=== PATIENT | male | born 1955 | race Caucasian/White ===

== ENCOUNTER 2022-05-29 09:20 | Observation (INO) ==
[2022-05-29] MEDS ORDERED: dilTIAZem HCl 5 MG/ML 5 ML VIAL IV STA (09:39)
[2022-05-29] MEDS ORDERED: SODIUM CHLORIDE 0.9% 1000ML 1,000 ML IV ONE (09:39)
--- NOTE | 2022-05-29 09:44 | Emergency Department Note ---
Impression & Plan Atrial fibrillation with rapid ventricular response Admit ED Provider Note HPI: The patient is a 67-year-old gentleman who presents to the emergency department with concern for atrial fibrillation with RVR. Patient was seen at his outpatient provider's office today for routine screening examination preoperatively for carpal tunnel procedure that he is to undergo in the near future. Patient was noted to have tachycardia, EKG was performed at the facility and shows atrial fibrillation with RVR with heart rate in the 150s. Patient states that he does not have any chest pain, states he did not have any sensation of palpitations until he was told about this at the office and then he did begin to experience a sensation of palpitations. Patient otherwise is in no acute distress on arrival, he is hemodynamically stable from the standpoint of his blood pressure, his pulse was noted to be 94 in triage however patient is tachycardic in the 140s on the monitor on my assessment. EKG was brought with him for review and does show atrial fibrillation with a heart rate of 155 that was obtained an hour and 40 minutes prior to the patient's assessment here in the ED. Patient does arrive by private vehicle. 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 ROS: -Cardio: Palpitations -Skin: Abrasions to left antecubital fossa area *10 point review systems was conducted and is otherwise negative unless stated above *Outpatient medications and allergy history reviewed PE: General: Alert, NAD HEENT: Normocephalic, atraumatic Eyes: Extraocular eye movement is intact, no scleral erythema Pulmonary: Clear to auscultation bilaterally, no wheezing Cardio: Tachycardic rate with an irregular rhythm GI: Abdomen is soft, nontender : No suprapubic tenderness MSK: No evidence of trauma or malformation of the extremities, no edema Skin: No evidence of rash, superficial subacute appearing abrasions to the left upper extremity without surrounding erythema, no swelling or fluctuance Neuro: Alert, no focal deficits Psychiatric: Cooperative court recording monitor: - An order was placed for continuous cardiac monitoring - Patient was noted to be in atrial fibrillation with a rate of 145 EKG: Rate: 146 Rhythm: Atrial fibrillation Intervals: Within normal limits ST changes: No ST elevation Time: 0942 Medical Decision Making: Patient presented to the emergency department with a chief complaint of atrial fibrillation with RVR. This was noted at a preoperative screening appointment at his primary care doctor's office today. On arrival the patient is tachycardic but blood pressure is stable, he denies any chest pain or shortness of breath. IV was established, lab work obtained, patient was placed on awake overnight monitor, EKG does show evidence of atrial fibrillation with RVR, patient was given a diltiazem bolus with minimal response, he was subsequently started on a diltiazem drip and was given a dose of IV metoprolol. On my reassessment the patient's heart rate is in the low 100s. He otherwise appears well, he remains in atrial fibrillation. 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 There is no impressive erythema surrounding the area, no fluctuance to palpation, patient is however noted to have a significant leukocytosis with a left shift therefore was covered with vancomycin and ceftriaxone following consultation with in-house pharmacy here in the ED. Chest x-ray does not show any acute abnormality, troponin is negative, I did discuss admission with the patient he is in agreement, [facility] was consulted for admission and the leonard helton was admitted in stable condition for further care. * CRITICAL CARE TIME: 44 min -Stabilization of tachyarrhythmia requiring IV medications for rate control, time spent at the bedside, interpretation of diagnostic studies and EKG, arrangement of admission Diagnosis: 1. Atrial fibrillation with RVR, new onset 2. Abrasions to the left forearm from rabbit scratch 3. Leukocytosis Disposition: Admission Sabino Snowden DO Emergency Medicine Past Med/Surg History Medical History (Updated 05/29/22 @ 11:16 by Sabino Snowden DO) GERD (gastroesophageal reflux disease) HX Hypertension Surgical History History of arthroscopy RIGHT KNEE History of colonoscopy with polypectomy History of hernia repair abdominal hernia repair History of laryngoscopy WITH BOTOX SHOTS TO VOCAL CORDS History of right cataract surgery History of tooth extraction WITH IMPLANTS Hx of tonsillectomy Family History Other No family history of adverse response to anesthesia Denies family history of Colon cancer Ovarian cancer Prostate cancer Myocardial infarction Breast cancer Social History (Updated 05/22/19 @ 08:19 by Eleanor Mo) Smoking Status: Never smoker Second Hand Exposure: No; Hx Alcohol Use: No Hx Substance Use: No Preferred Language: Malaysian Communication Ability: Effective 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 Beliefs That Will Affect Care: None Current Living Situation: Significant Other Current Living Situation Comment: lives with girlfriend Feels Safe at Home: Yes Assistive Devices: Glasses Allergies Allergies Allergy/AdvReac Type Severity Reaction Status Date / Time No Known Allergies Allergy Verified 04/03/20 06:24 Home Meds Home Medications Medication Instructions Recorded Confirmed lisinopril 5 mg tablet 5 mg PO QAM 01/08/20 04/02/20 nortriptyline 10 mg capsule 10 mg PO PM 01/08/20 04/02/20 Results & Data (ED) Vital Signs Vital Signs - 24 hr 05/29/22 09:30 05/29/22 09:45 05/29/22 09:45 Temperature 37.0 C Temperature Source Temporal Artery Scan Pulse Rate 94 H 139 H Pulse Rate [Apical] 142 H Pulse Rate from SpO2 Sensor Pulse Rhythm Irregular Pulse Rhythm [Apical] Irregular Respiratory Rate 20 18 18 Respiratory Effort / Characteristics Non-Labored Non-Labored Respiratory Depth Normal Normal Blood Pressure 136/97 Blood Pressure [Left Arm] 124/81 Blood Pressure Mean 110 Blood Pressure Mean [Left Arm] 95 Pulse Oximetry 98 98 98 Oxygen Delivery Method Room Air Room Air Room Air Sepsis Recent Fever Within 48 Hours No Sepsis New/Unexplained Change in Mental Status N/A Sepsis Action Taken by Nursing No Action Required 05/29/22 09:59 05/29/22 09:59 05/29/22 10:00 Temperature Temperature Source Pulse Rate 125 H Pulse Rate [Apical] Pulse Rate from SpO2 Sensor 140 H Pulse Rhythm Pulse Rhythm [Apical] Respiratory Rate 20 Respiratory Effort / Characteristics Respiratory Depth Blood Pressure 148/112 H Blood Pressure [Left Arm] Blood Pressure Mean 124 Blood Pressure Mean [Left Arm] Pulse Oximetry 98 Oxygen Delivery Method Room Air Sepsis Recent Fever Within 48 Hours Sepsis New/Unexplained Change in Mental Status Sepsis Action Taken by Nursing 05/29/22 10:00 05/29/22 10:10 05/29/22 10:10 Temperature Temperature Source Pulse Rate 132 H 128 H Pulse Rate [Apical] Pulse Rate from SpO2 Sensor 124 H 118 H Pulse Rhythm Pulse Rhythm [Apical] Respiratory Rate 16 26 H Respiratory Effort / Characteristics Respiratory Depth Blood Pressure 158/104 H Blood Pressure [Left Arm] Blood Pressure Mean 122 Blood Pressure Mean [Left Arm] Pulse Oximetry 99 97 Oxygen Delivery Method Sepsis Recent Fever Within 48 Hours Sepsis New/Unexplained Change in Mental Status Sepsis Action Taken by Nursing 05/29/22 10:20 05/29/22 10:20 05/29/22 10:47 Temperature Temperature Source Pulse Rate 130 H 140 H Pulse Rate [Apical] Pulse Rate from SpO2 Sensor 126 H Pulse Rhythm Pulse Rhythm [Apical] Respiratory Rate Respiratory Effort / Characteristics Respiratory Depth Blood Pressure 144/117 H 146/113 H Blood Pressure [Left Arm] Blood Pressure Mean 126 Blood Pressure Mean [Left Arm] Pulse Oximetry 99 Oxygen Delivery Method Sepsis Recent Fever Within 48 Hours Sepsis New/Unexplained Change in Mental Status Sepsis Action Taken by Nursing Laboratory Data Result diagrams: 05/29/22 09:48 05/29/22 09:48 Lab Results 05/29/22 05/29/22 05/29/22 Range/Units 09:48 09:48 09:48 WBC 16.37 H (4.8-10.8) K/ul RBC 5.19 (4.63-6.08) M/uL Hgb 14.8 (14.0-18.0) g/dl Hct 43.2 (40.1-51.0) % MCV 83.2 (80.0-100.0) fL MCH 28.5 (25.0-34.0) pg MCHC 34.3 (32.0-36.0) g/dL RDW Std Deviation 36.5 (36.4-46.3) fL RDW Coeff of Julio 12.0 (11.5-14.5) % Plt Count 371 (130-400) K/uL MPV 8.7 L (9.4-12.4) fL Immature Gran % (Auto) 0.4 % Neut % (Auto) 67.3 % Lymph % (Auto) 23.8 % Concho % (Auto) 7.8 % Eos % (Auto) 0.4 % Baso % (Auto) 0.3 % Neut # (Auto) 11.02 H (1.4-6.5) K/uL Lymph # (Auto) 3.89 H (1.2-3.4) K/uL Concho # (Auto) 1.28 H (0.24-0.82) K/uL Eos # (Auto) 0.07 (0-0.50) K/uL Baso # (Auto) 0.05 (0-0.2) K/uL Immature Gran # (Auto) 0.06 H (0.00-0.02) K/uL PT 10.2 (9.0-12.0) Seconds INR 1.0 (0.9-1.1) APTT 27.3 (21.0-31.0) Seconds PTT Ratio 1.0 Sodium 137 (136-145) mmol/L Potassium 3.6 (3.5-5.1) mmol/L Chloride 100 (98-107) mmol/L Carbon Dioxide 29 (21-32) mmol/L Anion Gap 8 (3-11) BUN 19 (6-23) mg/dl Creatinine 0.77 (0.6-1.4) mg/dl Est Cr Clr Drug Dosing 84.5 ml/min Est GFR ( Amer) 107.3 ml/min Est GFR (Non-Af Amer) 92.6 ml/min BUN/Creatinine Ratio 24.7 H (10-20) Glucose 156 H (70-99(Fasting)) mg/dl Calcium 9.7 (8.5-10.1) mg/dl Magnesium 2.0 (1.7-2.4) mg/dl Total Bilirubin 0.4 (0.2-1.0) mg/dl AST 16 (13-39) U/L ALT 21 (7-52) U/L Alkaline Phosphatase 57 (34-104) U/L Troponin I High Sens 16.2 (0-20) pg/ml Total Protein 6.8 (6.0-8.3) gm/dl Albumin 3.8 (3.4-5.0) gm/dl Globulin 3.0 (2.5-4.0) gm/dl Albumin/Globulin Ratio 1.3 (0.9-2) Lipase 34 (11-82) U/L TSH (0.300-4.500) uIu/ml 05/29/22 Range/Units 09:48 WBC (4.8-10.8) K/ul RBC (4.63-6.08) M/uL Hgb (14.0-18.0) g/dl Hct (40.1-51.0) % MCV (80.0-100.0) fL MCH (25.0-34.0) pg MCHC (32.0-36.0) g/dL RDW Std Deviation (36.4-46.3) fL RDW Coeff of Julio (11.5-14.5) % Plt Count (130-400) K/uL MPV (9.4-12.4) fL Immature Gran % (Auto) % Neut % (Auto) % Lymph % (Auto) % Concho % (Auto) % Eos % (Auto) % Baso % (Auto) % Neut # (Auto) (1.4-6.5) K/uL Lymph # (Auto) (1.2-3.4) K/uL Concho # (Auto) (0.24-0.82) K/uL Eos # (Auto) (0-0.50) K/uL Baso # (Auto) (0-0.2) K/uL Immature Gran # (Auto) (0.00-0.02) K/uL PT (9.0-12.0) Seconds INR (0.9-1.1) APTT (21.0-31.0) Seconds PTT Ratio Sodium (136-145) mmol/L Potassium (3.5-5.1) mmol/L Chloride (98-107) mmol/L Carbon Dioxide (21-32) mmol/L Anion Gap (3-11) BUN (6-23) mg/dl Creatinine (0.6-1.4) mg/dl Est Cr Clr Drug Dosing ml/min Est GFR ( Amer) ml/min Est GFR (Non-Af Amer) ml/min BUN/Creatinine Ratio (10-20) Glucose (70-99(Fasting)) mg/dl Calcium (8.5-10.1) mg/dl Magnesium (1.7-2.4) mg/dl Total Bilirubin (0.2-1.0) mg/dl AST (13-39) U/L ALT (7-52) U/L Alkaline Phosphatase (34-104) U/L Troponin I High Sens (0-20) pg/ml Total Protein (6.0-8.3) gm/dl Albumin (3.4-5.0) gm/dl Globulin (2.5-4.0) gm/dl Albumin/Globulin Ratio (0.9-2) Lipase (11-82) U/L TSH 1.064 (0.300-4.500) uIu/ml Administered Medications Diltiazem HCl 125 mg/ Dextrose 125 mls @ 5 mls/hr IV .Q24H [facility]; Protocol Stop: 06/28/22 09:59 Last Admin: 05/29/22 10:16 Dose: 5 mg/hr, 5 mls/hr Documented By: FELA Co-signed By: LEONOR Discontinued Medications Diltiazem HCl (Diltiazem Hcl 5 Mg/Ml 5 Ml Vial) 10 mg IV NOW STA Stop: 05/29/22 09:40 Last Admin: 05/29/22 09:50 Dose: 10 mg Documented By: ANGY Co-signed By: FELA Sodium Chloride (Nss 1000ml) 1,000 mls @ 999 mls/hr IV .Q1H1M ONE Stop: 05/29/22 10:39 Last Admin: 05/29/22 09:52 Dose: 999 mls/hr Documented By: ANGY Metoprolol Tartrate (Metoprolol Tartrate 1 Mg/Ml Vial) 5 mg IV NOW STA Stop: 05/29/22 10:30 Last Admin: 05/29/22 10:47 Dose: 5 mg Documented By: FELA Imaging Data Radiologist's Impression: Chest X-Ray 05/29/22 09:33 XR chest 1V portable HISTORY: 67 years-old Male Chest Pain COMPARISON: None TECHNIQUE: AP view of the chest FINDINGS: Cardiomediastinal and hilar silhouettes are within normal limits. Nipple shadow projects over the left lung base. No pneumothorax, pleural effusion, airspace consolidation or overt pulmonary edema. Degenerative changes of the shoulders and spine. IMPRESSION: No acute process. ACT 112: Negative or not required by law. The above report was generated using voice recognition software. It may contain grammatical, syntax or spelling errors. Electronically signed by: Edu Cage M.D. 05/29/2022 10:41 AM Discharge Plan Visit Data Chief Complaint: Cardiac Assessment Stated Complaint: ABNORMAL LABS, REF BY DR PEREZ Provider: Sabino Snowden Discharge Problem: Atrial fibrillation with rapid ventricular response Patient Disposition: Admitted As Inpatient Forms Stand Alone Forms: [facility] Prescriptions Prescriptions: No Action nortriptyline 10 mg capsule 10 mg PO PM lisinopril 5 mg tablet 5 mg PO QAM Referrals Referrals: PCP,NO [Physician] -
[2022-05-29] MEDS ORDERED: STAT IV Infusion **Titration per Protocol STA (09:59)
[2022-05-29 10:00] LABS: Basophils # (auto) 0.05 K/uL (0-0.2); Basophils % (auto) 0.3 %; Eosinophils # (auto) 0.07 K/uL (0-0.50); Eosinophils % (auto) 0.4 %; Hematocrit (blood only) 43.2 % (40.1-51.0); Hemoglobin 14.8 g/dl (14.0-18.0); Immature Granulocytes # (auto) 0.06 K/uL (0.00-0.02); Immature Granulocytes % (auto) 0.4 %; Lymphocytes # (auto) 3.89 K/uL (1.2-3.4); Lymphocytes % (auto) 23.8 %; Mean Corpuscular Hemoglobin 28.5 pg (25.0-34.0); Mean Corpuscular Hgb Conc 34.3 g/dL (32.0-36.0); Mean Corpuscular Volume 83.2 fL (80.0-100.0); Mean Platelet Volume 8.7 fL (9.4-12.4); Monocytes # (auto) 1.28 K/uL (0.24-0.82); Monocytes % (auto) 7.8 %; Neutrophils # (auto) 11.02 K/uL (1.4-6.5); Neutrophils % (auto) 67.3 %; Platelet Count 371 K/uL (130-400); RDW Standard Deviation 36.5 fL (36.4-46.3); Red Blood Count 5.19 M/uL (4.63-6.08); White Blood Count 16.37 K/ul (4.8-10.8)
[2022-05-29 10:16] LABS: Partial Thromboplastin Time 27.3 Seconds (21.0-31.0); Prothrombin Time 10.2 Seconds (9.0-12.0)
[2022-05-29] MEDS: dilTIAZem HCL 125 MG in DEXTROSE 5% 100 ML IV SCH (10:16)
[2022-05-29] MEDS ORDERED: METOPROLOL TARTRATE 1 MG/ML VIAL IV STA (10:29)
[2022-05-29 10:31] LABS: Albumin Globulin Ratio 1.3 (0.9-2); Albumin Level 3.8 gm/dl (3.4-5.0); BUN Creatinine Ratio 24.7 (10-20); Bilirubin,Total 0.4 mg/dl (0.2-1.0); Calcium 9.7 mg/dl (8.5-10.1); Creatinine Clr Calc Pharmacy 84.5 ml/min; Est GFR (African American) 107.3 ml/min; Est GFR (Non-African American) 92.6 ml/min; Potassium 3.6 mmol/L (3.5-5.1); Total Protein 6.8 gm/dl (6.0-8.3)
--- NOTE | 2022-05-29 10:43 | XRay Report ---
XR chest 1V portable HISTORY: 67 years-old Male Chest Pain COMPARISON: None TECHNIQUE: AP view of the chest FINDINGS: Cardiomediastinal and hilar silhouettes are within normal limits. Nipple shadow projects over the lef t lung base. No pneumothorax, pleural effusion, airspace consolidation or overt pulmonary edema. Dege nerative changes of the shoulders and spine. IMPRESSION: No acute process. ACT 112: Negative or not required by law. The above report was generated using voice recognition software. It may contain grammatical, syntax o r spelling errors. Electronically signed by: Edu Cage M.D. 05/29/2022 10:41 AM
[2022-05-29] MEDS ORDERED: VANCOMYCIN HCL 1,250 MG in SODIUM CHLORIDE 0.9% 500 ML IV ONE (11:09)
[2022-05-29] MEDS ORDERED: cefTRIAXone SODIUM 1,000 MG/50 ML BAG IV STA (11:09)
[2022-05-29] MEDS ORDERED: VANCOMYCIN CONSULT ACTIVE PRN (11:09)
[2022-05-29 11:19] LABS: Troponin I High Sensitivity 15.6 pg/ml (0-20)
--- NOTE | 2022-05-29 11:28 | History & Physical Report ---
Date of Service May 29, 2022 Assessment & Plan (1) Atrial fibrillation with rapid ventricular response: Plan: This is a 67-year-old male with PMH of prediabetes, HTN, carpal tunnel who presents from PCPs office with tachycardia and was found to have new onset A. fib with RVR. Irina WNL, has been on steroids for 2 weeks for carpal tunnel pain and hand swelling Possible underlying infection of LUE 2/2 abrasions from rabbit CXR with no acute process Diltiazem bolus and drip initiated in ED - HR ~ 115 during examination Continue drip, started on IV heparin for anticoagulation [id number] 2D echo obtained, routine cardiology consult (2) Hypertension: Plan: Continue lisinopril (3) Leukocytosis: (4) Carpal tunnel syndrome on both sides: Plan: Continue medrol dosepak to complete- given missed dose in ED DVT Ppx: IV heparin Code status: FULL PCP: [place] Dispo: Admitted to PCU Patient seen in collaboration with Dr. Gee. Please see addendum. History of Present Illness Chief Complaint: tachycardia, sent from PCP Primary Care Provider: Ricardo Sarah MD This is a 67-year-old male with PMH of prediabetes, HTN, carpal tunnel who presents from PCPs office with tachycardia. Patient was being seen in follow-up for bilateral hand pain due to carpal tunnel with surgery scheduled for July. Is in the middle of a Medrol dose pack taper. At PCP appointment, patient was noted to be tachycardic and EKG revealed A. fib with RVR and was direcred to ED for further evaluation. HR in 140s upon arrival. Patient denies any history of atrial fibrillation. 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 Infrequent alcohol use. Denies personal history of any known heart disease. Does have scratches on left arm from [place] rabbits. Has approximately 20 pet rabbits that and he was kicked and scratched on L arm last week. States appearance of scratches are improving. No fever or chills or open wounds. Denies any lightheadedness, chest pain, shortness of breath or near syncope. States he only noted palpitations after he was told in the office that his heart rate was high. Home medications include lisinopril for high blood pressure and nortriptyline for remote history of cataplexy. On day 4 of week long Medrol dose pack. Allergies Allergy/AdvReac Type Severity Reaction Status Date / Time No Known Allergies Allergy Verified 04/03/20 06:24 Home Medications Medication Instructions Recorded Confirmed Type nortriptyline 10 mg capsule 10 mg PO PM 01/08/20 05/29/22 History lisinopril 10 mg tablet 10 mg PO DAILY 05/29/22 05/29/22 History Past Med/Surg History Medical History Carpal tunnel syndrome on both sides GERD (gastroesophageal reflux disease) HX Hypertension Surgical History History of arthroscopy RIGHT KNEE History of colonoscopy with polypectomy History of hernia repair abdominal hernia repair History of laryngoscopy WITH BOTOX SHOTS TO VOCAL CORDS History of right cataract surgery History of tooth extraction WITH IMPLANTS Hx of tonsillectomy Family History Other Heart disease No family history of adverse response to anesthesia Denies family history of Colon cancer Ovarian cancer Prostate cancer Myocardial infarction Breast cancer Social History Smoking Status: Former smoker Smoking End Date: 1984; Second Hand Exposure: No; Hx Alcohol Use: Yes Alcohol type: beer Alcohol Intake Frequency: 2-4 x/Month Hx Substance Use: No Preferred Language: Citizen Of [place] Communication Ability: Effective 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 Physical Exam Physical Exam: Please see Dr. Gee's addendum for physical exam. Results & Data Results & Data ([facility]) Vital Signs (Past 12 Hours) Vital Signs Temp Pulse Pulse Resp BP BP Pulse Ox 05/29/22 10:47 140 H 146/113 H 05/29/22 10:20 130 H 99 05/29/22 10:20 144/117 H 05/29/22 10:10 128 H 26 H 97 05/29/22 10:10 158/104 H 05/29/22 10:00 132 H 16 99 05/29/22 10:00 148/112 H 05/29/22 09:59 125 H 20 98 05/29/22 09:59 05/29/22 09:45 139 H 18 98 05/29/22 09:45 142 H 18 124/81 98 05/29/22 09:30 37.0 C 94 H 20 136/97 98 O2 Del Method 05/29/22 10:47 05/29/22 10:20 05/29/22 10:20 05/29/22 10:10 05/29/22 10:10 05/29/22 10:00 05/29/22 10:00 05/29/22 09:59 05/29/22 09:59 Room Air 05/29/22 09:45 Room Air 05/29/22 09:45 Room Air 05/29/22 09:30 Room Air Laboratory Results Short CBC 05/29/22 Range/Units 09:48 WBC 16.37 H (4.8-10.8) K/ul Hgb 14.8 (14.0-18.0) g/dl Hct 43.2 (40.1-51.0) % Plt Count 371 (130-400) K/uL BMP 05/29/22 09:48 Sodium 137 Potassium 3.6 Chloride 100 Carbon Dioxide 29 BUN 19 Creatinine 0.77 Glucose 156 H Calcium 9.7 Liver Function 05/29/22 Range/Units 09:48 Total Bilirubin 0.4 (0.2-1.0) mg/dl AST 16 (13-39) U/L ALT 21 (7-52) U/L Alkaline Phosphatase 57 (34-104) U/L Albumin 3.8 (3.4-5.0) gm/dl Diagnostic Findings Chest X-Ray 05/29/22 09:33 XR chest 1V portable HISTORY: 67 years-old Male Chest Pain COMPARISON: None TECHNIQUE: AP view of the chest FINDINGS: Cardiomediastinal and hilar silhouettes are within normal limits. Nipple shadow projects over the left lung base. No pneumothorax, pleural effusion, airspace consolidation or overt pulmonary edema. Degenerative changes of the shoulders and spine. IMPRESSION: No acute process. ACT 112: Negative or not required by law. The above report was generated using voice recognition software. It may contain grammatical, syntax or spelling errors. Electronically signed by: Edu Cage M.D. 05/29/2022 10:41 AM ECG Additional Comments: A fib with RVR Code Status & VTE Plan VTE Prophylaxis Plan VTE Prophylaxis will be ordered: Yes Supervising Physician Co-Signing Physician Notes Patient was seen and examined at bedside. Chart reviewed. Case discussed with Karolina Francisco PA-C and agree with the documentation above. In summary, this is a 67 year old male who was referred to the ED from the orthopedic office for Afib with RVR. Patient presented there for preop evaluation for future carpal tunnel surgery and was noted to be in Afib with HR in 150s. Asymptomatic. Sent to ED. Electrolytes, TSH, trop WNL. CXR unremarkable. He was given cardizem bolus and drip and HR now controlled in 110s. [id number] score of 2 with HTN and age, echo pending. Also started on heparin drip. Admit to PCU on cardizem drip, heparin drip, tele, echocardiogram, cardio consult. Also has left forearm wound due to scratch from his rabbits- states present over the past week but actually improving- has leucocytosis but likely from steroids. Given empiric antibiotics in ED. Follow blood culture results. On medrol dose pack as OP for hand swelling and pain and will be continued. On exam General: Lying comfortably in bed, not in distress, on room air HEENT: EOMI, MARYANNE, MMM Chest: Clear breath sounds bilaterally, no wheezes or crackles CVS: Irregularly irregular, normal heart sounds, no murmur Abdomen: Soft, non tender, not distended, normal bowel sounds Neuro: Awake, alert, oriented, conversing well, non focal Extremities: No edema. LUE with scratch loreta with erythema along the line Rest as per the note above.
[2022-05-29] MEDS ORDERED: Heparin IV Adult Wt-Based Standard *NO* Bolus Protocol IV SCH (11:30)
[2022-05-29] MEDS ORDERED: HEPARIN 25000 UNIT/500 ML D5W IV ONE (11:58)
[2022-05-29] MEDS: HEPARIN SODIUM/DEXTROSE 25,000 UNITS/500 ML BAG IV SCH (12:11)
[2022-05-29] MEDS ORDERED: methylPREDNISolone 4 MG TAB, 6 DAY TAPER PO ONE (12:50)
[2022-05-29] MEDS ORDERED: methylPREDNISolone 4 MG TAB PO ONE (13:30)
[2022-05-29 14:11] LABS: Amphetamines+Metham, Urine Neg (Neg); Barbiturates, Urine Neg (Neg); Benzodiazepine, Urine Neg (Neg); Cocaine, Urine Neg (Neg); MDMA (Ecstacy), Urine Neg (Neg); Methadone, Urine Neg (Neg); Opiate, Urine Neg (Neg); Phencyclidine, Urine Neg (Neg)
[2022-05-29] MEDS ORDERED: POLYETHYLENE (MIRALAX) 17 GM PACK PO PRN (14:35)
[2022-05-29] MEDS ORDERED: ONDANSETRON INJ 2 MG/ML 2 ML VIAL IV PRN (14:35)
[2022-05-29] MEDS ORDERED: ACETAMINOPHEN 325 MG TAB PO PRN (14:35)
[2022-05-29] MEDS: DOXYCYCLINE HYCLATE 100 MG in DEXTROSE 5% 100 ML IV SCH (15:49)
--- NOTE | 2022-05-29 16:35 | Cardiology Consultation ---
Date of Consultation May 29, 2022 Assessment & Plan (1) Atrial fibrillation with rapid ventricular response: (2) Hypertension: (3) Carpal tunnel syndrome on both sides: (4) Abrasion of left upper extremity: Plan The pathophysiology and treatment options for atrial fibrillation were discussed with the patient at great lengths. He is asymptomatic so I do believe an initial rate control strategy would be prudent and possible cardioversion after 1 months of anticoagulation. He is very anxious for discharge what his heart rates are still in the 120s despite the Cardizem drip at 15 mg/h. I have started metoprolol tartrate 25 mg now and then twice daily. My hope is that we will be able to get his heart rate under control with the metoprolol and titrate the Cardizem drip to off. He can then be discharged home with a prescription for Eliquis 5 mg p.o. twice daily My office will call to arrange follow-up with me in 1 month. History of Present Illness Reason for Consultation: A. fib with rapid ventricular response Requesting Physician: [facility] hospitalist group Attending Physician: Isaiah Gee MD History of Present Illness It was my pleasure to see Mr. Echols in cardiac consultation today May 29, 2022. He is a very pleasant 67-year-old gentleman who was sent to the emergency room from his primary care's office today for tachycardia. He was found to be in atrial fibrillation with rapid ventricular response. Clinically states he feels well. 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 He denies any complaints of chest pain, shortness of breath, palpitations, lightheadedness, dizziness or syncope. Denies any previous cardiac history except for an episode of SVT after dental work in the . His most pressing question is how soon he can be discharged. Allergies Allergy/AdvReac Type Severity Reaction Status Date / Time No Known Allergies Allergy Verified 04/03/20 06:24 Home Medications Medication Instructions Recorded Confirmed Type nortriptyline 10 mg capsule 10 mg PO PM 01/08/20 05/29/22 History lisinopril 10 mg tablet 10 mg PO DAILY 05/29/22 05/29/22 History Patient History Medical History Carpal tunnel syndrome on both sides GERD (gastroesophageal reflux disease) HX Hypertension Surgical History History of arthroscopy RIGHT KNEE History of colonoscopy with polypectomy History of hernia repair abdominal hernia repair History of laryngoscopy WITH BOTOX SHOTS TO VOCAL CORDS History of right cataract surgery History of tooth extraction WITH IMPLANTS Hx of tonsillectomy Family History Other Heart disease No family history of adverse response to anesthesia Denies family history of Colon cancer Ovarian cancer Prostate cancer Myocardial infarction Breast cancer Social History Smoking Status: Former smoker Smoking End Date: 1984; Second Hand Exposure: No; Hx Alcohol Use: No Hx Substance Use: No Preferred Language: Bermudian Communication Ability: Effective 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 No acute distress. HEENT: Normocephalic, atraumatic. Pupils equal, round and reactive to light and accommodation. Extraocular muscles are intact. Anicteric sclera. Moist mucous membranes. Neck: No JVD. No bruit. Cardiovascular: irregularly irregular, unable to appreciate murmur, rub or gallop. Pulmonary: Clear to auscultation bilaterally. No rales, rhonchi, or wheezing. Abdomen: Bowel sounds x 4, soft. No rebound, guarding or tenderness. No organomegaly. Extremities: No clubbing, cyanosis or edema. +2 pedal pulses bilaterally. Skin: Warm and dry. Results & Data ([facility]) Vital Signs (Past 12 Hours) Vital Signs Temp Pulse Pulse Resp BP BP Pulse Ox 05/29/22 14:35 36.4 C L 117 H 20 148/104 H 98 05/29/22 14:00 108 H 17 05/29/22 14:00 130/95 07/29/22 13:50 141/110 H 05/29/22 13:50 114 H 17 05/29/22 13:30 115 H 21 05/29/22 13:30 99/78 L 05/29/22 13:00 105 H 14 100 05/29/22 13:00 131/90 05/29/22 12:30 96 H 18 05/29/22 12:30 125/83 05/29/22 12:24 103 H 17 05/29/22 12:24 113/93 05/29/22 12:00 101 H 18 05/29/22 12:00 132/97 05/29/22 11:50 111/72 05/29/22 11:50 98 H 17 86 L 05/29/22 11:41 111 H 7 L 98 05/29/22 11:41 114/77 05/29/22 11:34 104 H 15 99 05/29/22 11:34 115/90 05/29/22 11:33 121/98 05/29/22 11:33 112 H 16 94 05/29/22 11:31 106 H 15 94 05/29/22 11:30 109 H 21 97 05/29/22 11:20 101 H 14 98 05/29/22 11:20 97/83 L 05/29/22 11:10 110 H 15 96 05/29/22 11:10 106/82 05/29/22 11:01 99/82 L 05/29/22 11:01 116 H 20 96 05/29/22 11:00 112 H 21 77 L 05/29/22 10:40 141 H 13 99 05/29/22 10:40 146/113 H 05/29/22 10:30 123 H 12 98 05/29/22 10:30 141/91 H 05/29/22 10:47 140 H 146/113 H 05/29/22 10:20 130 H 99 05/29/22 10:20 144/117 H 05/29/22 10:10 128 H 26 H 97 05/29/22 10:10 158/104 H 05/29/22 10:00 132 H 16 99 05/29/22 10:00 148/112 H 05/29/22 09:59 125 H 20 98 05/29/22 09:59 05/29/22 09:45 139 H 18 98 05/29/22 09:45 142 H 18 124/81 98 05/29/22 09:30 37.0 C 94 H 20 136/97 98 O2 Del Method 05/29/22 14:35 Room Air 05/29/22 14:00 05/29/22 14:00 05/29/22 13:50 05/29/22 13:50 05/29/22 13:30 05/29/22 13:30 05/29/22 13:00 05/29/22 13:00 05/29/22 12:30 05/29/22 12:30 05/29/22 12:24 05/29/22 12:24 05/29/22 12:00 05/29/22 12:00 05/29/22 11:50 05/29/22 11:50 05/29/22 11:41 05/29/22 11:41 05/29/22 11:34 05/29/22 11:34 05/29/22 11:33 05/29/22 11:33 05/29/22 11:31 05/29/22 11:30 05/29/22 11:20 05/29/22 11:20 05/29/22 11:10 05/29/22 11:10 05/29/22 11:01 05/29/22 11:01 05/29/22 11:00 05/29/22 10:40 05/29/22 10:40 05/29/22 10:30 05/29/22 10:30 05/29/22 10:47 05/29/22 10:20 05/29/22 10:20 05/29/22 10:10 05/29/22 10:10 05/29/22 10:00 05/29/22 10:00 05/29/22 09:59 05/29/22 09:59 Room Air 05/29/22 09:45 Room Air 05/29/22 09:45 Room Air 05/29/22 09:30 Room Air
[2022-05-29] MEDS: METOPROLOL TARTRATE 25 MG TAB PO SCH ×2 (17:30→21:29)
[2022-05-29 18:50] LABS: Partial Thromboplastin Ratio 1.8
[2022-05-29 18:51] LABS: Partial Thromboplastin Time 50.8 Seconds (21.0-31.0)
[2022-05-29] MEDS ORDERED: NORTRIPTYLINE HCL 10 MG CAP PO SCH (21:00)
[2022-05-29] MEDS ORDERED: LACTATED RINGER'S 1,000 ML IV ONE (21:21)
[2022-05-29] MEDS ORDERED: POTASSIUM CHLORIDE CRTAB 20 MEQ TABCR PO STA (21:21)
--- NOTE | 2022-05-29 21:22 | Electrocardiogram Report ---
Test Reason : Blood Pressure : / mmHG Vent. Rate : 146 BPM Atrial Rate : 127 BPM P-R Int : 000 ms QRS Dur : 092 ms QT Int : 290 ms P-R-T Axes : 000 051 047 degrees QTc Int : 451 ms Atrial fibrillation with rapid ventricular response Voltage criteria for left ventricular hypertrophy Nonspecific ST abnormality Abnormal ECG When compared with ECG of 26-MAY-2007 09:19, Atrial fibrillation has replaced Sinus rhythm Vent. rate has increased BY [address] now depressed in Lateral leads T wave amplitude has decreased in Lateral leads Confirmed by Adriel Canada ([id number]) on 05/29/2022 9:22:04 PM Referred By: Ricardo Sarah Confirmed By:Adriel Canada
[2022-05-30] MEDS ORDERED: METOPROLOL TARTRATE 25 MG TAB PO STA ×2 (02:57→16:15)
[2022-05-30] MEDS ORDERED: METOPROLOL TARTRATE 25 MG TAB PO SCH ×2 (03:00→21:00)
[2022-05-30] MEDS: dilTIAZem HCL 125 MG in DEXTROSE 5% 100 ML IV SCH (03:07)
[2022-05-30] MEDS: DOXYCYCLINE HYCLATE 100 MG in DEXTROSE 5% 100 ML IV SCH (04:29)
[2022-05-30 05:51] LABS: Hematocrit (blood only) 41.2 % (40.1-51.0); Hemoglobin 13.8 g/dl (14.0-18.0); Mean Corpuscular Hemoglobin 28.2 pg (25.0-34.0); Mean Corpuscular Hgb Conc 33.5 g/dL (32.0-36.0); Mean Corpuscular Volume 84.1 fL (80.0-100.0); Mean Platelet Volume 8.7 fL (9.4-12.4); Platelet Count 354 K/uL (130-400); RDW Coefficient of Variation 12.2 % (11.5-14.5); White Blood Count 14.84 K/ul (4.8-10.8)
[2022-05-30 06:16] LABS: BUN Creatinine Ratio 22.4 (10-20); Calcium 9.5 mg/dl (8.5-10.1); Creatinine Clr Calc Pharmacy 95.8 ml/min; Est GFR (African American) 113.6 ml/min; Potassium 4.3 mmol/L (3.5-5.1)
[2022-05-30 06:19] LABS: Partial Thromboplastin Ratio 2.6
[2022-05-30 06:22] LABS: Partial Thromboplastin Time 70.8 Seconds (21.0-31.0)
[2022-05-30] MEDS: methylPREDNISolone 4 MG TAB PO SCH ×2 (08:52→12:45)
[2022-05-30] MEDS ORDERED: lisinopril 10 MG TAB PO SCH (09:00)
[2022-05-30] MEDS: HEPARIN SODIUM/DEXTROSE 25,000 UNITS/500 ML BAG IV SCH (09:11)
--- NOTE | 2022-05-30 09:49 | Cardiology Progress Note ---
Date of Service May 30, 2022 Assessment & Plan (1) Atrial fibrillation with rapid ventricular response: (2) Hypertension: (3) Carpal tunnel syndrome on both sides: (4) Abrasion of left upper extremity: Plan The patient is asymptomatic in regard to his atrial fibrillation. 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 Therefore, we will not try rhythm control but try to achieve adequate rate control with anticoagulation and then have the patient follow-up with us as an outpatient. I have discontinued the diltiazem. Unfortunately he was doing well and then his metoprolol was held last evening by nursing due to low blood pressure. They did continue the diltiazem drip which is unfortunate. He did get a dose of metoprolol at 3 AM this morning. His heart rates are still little elevated and I have asked that they give him another dose now which should be his usual a.m. dose. We will wait till this afternoon and if we have to increas e his metoprolol dosage then we will then allow him to be discharged. I started him on Eliquis this morning and discontinued the heparin. If necessary we can give him a coupon for a month supply of the Eliquis and worry about cost and insurance as an outpatient. Admission and Anticipated Discharge Date Admission Date: May 29, 2022 Subjective The patient is very anxious to be discharged. 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 His being in the hospital is creating even more anxiety. Review of Systems Review of Systems: Review of Systems: See HPI for pertinent positives. All other 10 point review of systems are negative. Physical Exam Physical Exam: General: no acute distress and stated age Head: normocephalic, no masses, lesions, tenderness or abnormalities Eyes: conjunctiva are pink and non-injected, sclera clear Neck: supple, no adenopathy, no bruits, normal jugular venous pulse, no hepatojugular reflux Chest: normal shape and normal respiratory effort Lungs: clear to auscultation and percussion Cardiac Exam: - irregular rate & rhythm, no murmurs gallops or rubs - normal S1, normal S2 Pulses: 2(+) throughout Abdomen: abdomen soft, non-tender, no abnormal masses and no hepatosplenomegaly Musculoskeletal: no gait disturbance, no joint inflammation, no deforming arthritis Extremities: no edema and no cyanosis Neuro: grossly normal exam Results & Data ([facility]) Vital Signs (Past 12 Hours) Vital Signs Temp Pulse Pulse Resp BP BP Pulse Ox 05/30/22 07:48 36.5 C 87 18 144/92 H 98 05/30/22 03:36 36.3 C L 102 H 17 138/84 97 05/30/22 02:04 36.6 C 91 H 16 116/79 99 05/29/22 22:17 81 O2 Del Method 05/30/22 07:48 Room Air 05/30/22 03:36 Room Air 05/30/22 02:04 Room Air 05/29/22 22:17 Laboratory Results Laboratory Results - last 24 hr 05/29/22 05/29/22 05/29/22 09:48 09:48 09:48 WBC 16.37 H RBC 5.19 Hgb 14.8 Hct 43.2 MCV 83.2 MCH 28.5 MCHC 34.3 RDW Std Deviation 36.5 RDW Coeff of Julio 12.0 Plt Count 371 MPV 8.7 L Immature Gran % (Auto) 0.4 Neut % (Auto) 67.3 Lymph % (Auto) 23.8 [place] % (Auto) 7.8 Eos % (Auto) 0.4 Baso % (Auto) 0.3 Neut # (Auto) 11.02 H Lymph # (Auto) 3.89 H [place] # (Auto) 1.28 H Eos # (Auto) 0.07 Baso # (Auto) 0.05 Immature Gran # (Auto) 0.06 H PT 10.2 INR 1.0 APTT 27.3 PTT Ratio 1.0 Sodium 137 Potassium 3.6 Chloride 100 Carbon Dioxide 29 Anion Gap 8 BUN 19 Creatinine 0.77 Est Cr Clr Drug Dosing 84.5 Est GFR ( Amer) 107.3 Est GFR (Non-Af Amer) 92.6 BUN/Creatinine Ratio 24.7 H Glucose 156 H Calcium 9.7 Magnesium 2.0 Total Bilirubin 0.4 AST 16 ALT 21 Alkaline Phosphatase 57 Troponin I High Sens 15.6 Total Protein 6.8 Albumin 3.8 Globulin 3.0 Albumin/Globulin Ratio 1.3 Lipase 34 TSH Urine Opiates Screen Ur Methadone, Qual Urine Barbiturates Ur Phencyclidine (PCP) U Amphetamin/Meth Scrn MDMA (Ecstasy) Screen U Benzodiazepines Scrn Ur Cocaine Metabolite U Marijuana (THC) Screen Hepatitis C Ab (EIA) Hep C Ab Signal/Cutoff SARS-CoV-2, RNA, NAAT 05/29/22 05/29/22 05/29/22 09:48 11:36 13:10 WBC RBC Hgb Hct MCV MCH MCHC RDW Std Deviation RDW Coeff of Julio Plt Count MPV Immature Gran % (Auto) Neut % (Auto) Lymph % (Auto) [place] % (Auto) Eos % (Auto) Baso % (Auto) Neut # (Auto) Lymph # (Auto) [place] # (Auto) Eos # (Auto) Baso # (Auto) Immature Gran # (Auto) PT INR APTT PTT Ratio Sodium Potassium Chloride Carbon Dioxide Anion Gap BUN Creatinine Est Cr Clr Drug Dosing Est GFR ( Amer) Est GFR (Non-Af Amer) BUN/Creatinine Ratio Glucose Calcium Magnesium Total Bilirubin AST ALT Alkaline Phosphatase Troponin I High Sens Total Protein Albumin Globulin Albumin/Globulin Ratio Lipase TSH 1.064 Urine Opiates Screen Neg Ur Methadone, Qual Neg Urine Barbiturates Neg Ur Phencyclidine (PCP) Neg U Amphetamin/Meth Scrn Neg MDMA (Ecstasy) Screen Neg U Benzodiazepines Scrn Neg Ur Cocaine Metabolite Neg U Marijuana (THC) Screen Neg Hepatitis C Ab (EIA) Hep C Ab Signal/Cutoff SARS-CoV-2, RNA, NAAT NEGATIVE 05/29/22 05/30/22 05/30/22 18:15 05:29 05:29 WBC 14.84 H RBC 4.90 Hgb 13.8 L Hct 41.2 MCV 84.1 MCH 28.2 MCHC 33.5 RDW Std Deviation 37.0 RDW Coeff of Julio 12.2 Plt Count 354 MPV 8.7 L Immature Gran % (Auto) Neut % (Auto) Lymph % (Auto) [place] % (Auto) Eos % (Auto) Baso % (Auto) Neut # (Auto) Lymph # (Auto) [place] # (Auto) Eos # (Auto) Baso # (Auto) Immature Gran # (Auto) PT INR APTT 50.8 H* PTT Ratio 1.8 Sodium Potassium Chloride Carbon Dioxide Anion Gap BUN Creatinine Est Cr Clr Drug Dosing Est GFR ( Amer) Est GFR (Non-Af Amer) BUN/Creatinine Ratio Glucose Calcium Magnesium Total Bilirubin AST ALT Alkaline Phosphatase Troponin I High Sens Total Protein Albumin Globulin Albumin/Globulin Ratio Lipase TSH Urine Opiates Screen Ur Methadone, Qual Urine Barbiturates Ur Phencyclidine (PCP) U Amphetamin/Meth Scrn MDMA (Ecstasy) Screen U Benzodiazepines Scrn Ur Cocaine Metabolite U Marijuana (THC) Screen Hepatitis C Ab (EIA) Pending Hep C Ab Signal/Cutoff Pending SARS-CoV-2, RNA, NAAT 05/30/22 05/30/22 05:29 05:29 WBC RBC Hgb Hct MCV MCH MCHC RDW Std Deviation RDW Coeff of Julio Plt Count MPV Immature Gran % (Auto) Neut % (Auto) Lymph % (Auto) [place] % (Auto) Eos % (Auto) Baso % (Auto) Neut # (Auto) Lymph # (Auto) [place] # (Auto) Eos # (Auto) Baso # (Auto) Immature Gran # (Auto) PT INR APTT 70.8 H* PTT Ratio 2.6 Sodium 136 Potassium 4.3 Chloride 100 Carbon Dioxide 28 Anion Gap 8 BUN 15 Creatinine 0.67 Est Cr Clr Drug Dosing 95.8 Est GFR ( Amer) 113.6 Est GFR (Non-Af Amer) 98.0 BUN/Creatinine Ratio 22.4 H Glucose 122 H Calcium 9.5 Magnesium Total Bilirubin AST ALT Alkaline Phosphatase Troponin I High Sens Total Protein Albumin Globulin Albumin/Globulin Ratio Lipase TSH Urine Opiates Screen Ur Methadone, Qual Urine Barbiturates Ur Phencyclidine (PCP) U Amphetamin/Meth Scrn MDMA (Ecstasy) Screen U Benzodiazepines Scrn Ur Cocaine Metabolite U Marijuana (THC) Screen Hepatitis C Ab (EIA) Hep C Ab Signal/Cutoff SARS-CoV-2, RNA, NAAT Medications Administered Current Inpatient Medications Acetaminophen (Acetaminophen 325 Mg Tab) 650 mg PO Q4H PRN PRN Reason: Pain or Fever Stop: 06/28/22 14:34 Apixaban (Apixaban 5 Mg Tablet) 5 mg PO BID LORNE Stop: 06/29/22 09:59 Doxycycline Hyclate 100 mg/ (Dextrose) 110 mls @ 50 mls/hr IV Q12H LORNE; Protocol Stop: 06/05/22 15:59 Last Infusion: 05/30/22 06:38 Dose: Infused Lisinopril (Lisinopril 10 Mg Tab) 10 mg PO DAILY LORNE Stop: 06/29/22 08:59 Last Admin: 05/30/22 08:52 Dose: 10 mg Methylprednisolone (Methylprednisolone 4 Mg Tab) 4 mg PO 0700,1300,2100 LORNE Stop: 05/30/22 21:01 Last Admin: 05/30/22 08:52 Dose: 4 mg Methylprednisolone (Methylprednisolone 4 Mg Tab) 4 mg PO 0700,2100 LORNE Stop: 05/31/22 21:01 Methylprednisolone (Methylprednisolone 4 Mg Tab) 4 mg PO 0700 LORNE Stop: 06/01/22 07:01 Metoprolol Tartrate (Metoprolol Tartrate 25 Mg Tab) 25 mg PO BID LORNE Stop: 06/29/22 20:59 Last Admin: 05/30/22 09:47 Dose: 25 mg Nortriptyline HCl (Nortriptyline Hcl 10 Mg Cap) 10 mg PO PM LORNE Stop: 06/28/22 20:59 Last Admin: 05/29/22 21:29 Dose: 10 mg Ondansetron HCl (Ondansetron Inj 2 Mg/Ml 2 Ml Vial) 4 mg IV Q6H PRN PRN Reason: Nausea Stop: 06/28/22 14:34 Polyethylene Glycol (Polyethylene (Miralax) 17 Gm Pack) 17 gm PO DAILY PRN PRN Reason: Constipation Stop: 06/28/22 14:34
[2022-05-30] MEDS ORDERED: APIXABAN 5 MG TABLET PO SCH (10:00)
[2022-05-30] MEDS ORDERED: RIVAROXABAN 20 MG TAB PO SCH (11:30)
[2022-05-30] MEDS ORDERED: hydrOXYzine HCl 25 MG TAB PO STA (17:53)
--- NOTE | 2022-05-30 18:12 | Discharge Summary ---
Date of Service May 30, 2022 Admission HPI Per Admitting Provider This is a 67-year-old male with PMH of prediabetes, HTN, carpal tunnel who presents from PCPs office with tachycardia. Patient was being seen in follow-up for bilateral hand pain due to carpal tunnel with surgery scheduled for July. Is in the middle of a Medrol dose pack taper. At PCP appointment, patient was noted to be tachycardic and EKG revealed A. fib with RVR and was direcred to ED for further evaluation. HR in 140s upon arrival. Patient denies any history of atrial fibrillation. 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 Infrequent alcohol use. Denies personal history of any known heart disease. Does have scratches on left arm from [place] rabbits. Has approximately 20 pet rabbits that and he was kicked and scratched on L arm last week. States appearance of scratches are improving. No fever or chills or open wounds. Denies any lightheadedness, chest pain, shortness of breath or near syncope. States he only noted palpitations after he was told in the office that his heart rate was high. Home medications include lisinopril for high blood pressure and nortriptyline for remote history of cataplexy. On day 4 of week long Medrol dose pack. Admission Exam Per Admitting Provider General: Lying comfortably in bed, not in distress, on room air HEENT: EOMI, MARYANNE, MMM Chest: Clear breath sounds bilaterally, no wheezes or crackles CVS: Irregularly irregular, normal heart sounds, no murmur Abdomen: Soft, non tender, not distended, normal bowel sounds Neuro: Awake, alert, oriented, conversing well, non focal Extremities: No edema. LUE with scratch loreta with erythema along the line Principal Diagnosis A. fib with RVR, new episode Likely left forearm cellulitis Discharge Exam GENERAL: Alert and oriented x3. NAD, on RA. HEENT: No pallor, no icterus. Pupils equal, round and reactive to light. Oral mucosa moist. NECK: No JVD, no neck masses. HEART: S1 and S2 heard. irregular rate and rhythm. No murmur, no gallop. RESPIRATORY SYSTEM: Normal AP diameter. No accessory muscle use. No wheezing, no crackles. ABDOMEN: Soft, bowel sounds present, nontender, no distention. CENTRAL NERVOUS SYSTEM: No facial droop. Speech is clear. Obeys simple commands. Moves extremities. EXTREMITIES: No edema, no erythema seen. LUE w/ scratch and erythema along the line. Discharge Data Allergies Allergy/AdvReac Type Severity Reaction Status Date / Time No Known Allergies Allergy Verified 04/03/20 06:24 Consultations 05/29/22 11:21 ED Decision to Admit Stat 05/29/22 13:12 Consult Cardiology Routine Hospital Course (1) Atrial fibrillation with rapid ventricular response: Plan 67-year-old gentleman with PMH of prediabetes, HTN, carpal tunnel presented from PCP office with tachycardia and was found to have A. fib with RVR. Cardiology evaluated the patient. Metoprolol dose has been uptitrated, hydroxyzine has been added for his anxiety. 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 He has been started on Xarelto. He is to follow-up with cardiology as an outpatient. d/w cardiology, ok to dc w/ very close f/u with cardiology. Pt is aware. For his left forearm cellulitis, he will be discharged on doxycycline to complete 7 days course. For his carpal tunnel syndrome, he is to continue his Medrol Dosepak as prescribed by his outpatient provider. Pt aware. Patient to get his blood work in a week time and have the results forwarded to his primary care physician. Patient is being discharged home with following instruction at the point of discharge: Follow-up with your primary care physician within 1 week time. For your A. fib RVR, cardiology evaluated you, you are being discharged on metoprolol and Xarelto. Follow-up with cardiology in 1 to 2 weeks time upon discharge. For your left forearm cellulitis, you are being discharged on antibiotics to complete 7 days. You can use hydroxyzine as needed for anxiety, further discussion/management of your anxiety w/ your PCP as outpatient. Get your blood work CBC and CMP in a week time and have the results forwarded to your PCP. Continue your medrol dose pack as prescribed by your outpatient provider. Take medications as prescribed. By CMS guidelines, a determination that the admission or continued stay is not medically necessary has been made by a member of the Utilization Review committee and a physician for this hospital stay. Therefore, a Code 44 will be completed and the inpatient admission will be changed to outpatient. Total Time Total Time Spent Total Time Spent (In Minutes): 40 Discharge Plan Discharge Items Patient Disposition: Home - Self-Care Reason For Visit: A FIB WITH RVR, RUE CELLULITIS Discharge Diagnosis: A. fib with RVR, new episode Likely left forearm cellulitis Activity: Resume your previous activity Non-emergency contact: Primary Care Provider Call non-emergency contact if: you have any medication questions, your symptoms worsen and your temperature is above 101 Follow-up/Referrals: Ricardo Sarah MD [Primary Care Provider] - Diet: Heart Healthy Addtl Attending Provider Instructions: Follow-up with your primary care physician within 1 week time. For your A. fib RVR, cardiology evaluated you, you are being discharged on metoprolol and Xarelto. Follow-up with cardiology in 1 to 2 weeks time upon discharge. For your left forearm cellulitis, you are being discharged on antibiotics to complete 7 days. You can use hydroxyzine as needed for anxiety, further discussion/management of your anxiety w/ your PCP as outpatient. Get your blood work CBC and CMP in a week time and have the results forwarded to your PCP. Continue your medrol dose pack as prescribed by your outpatient provider. Take medications as prescribed. Pending Studies at Discharge: No Stand-Alone Forms: [employer], Smoking Cessation Medications and DC Order Prescriptions: New Xarelto 20 mg tablet 20 mg PO DAILY Qty: 30 0RF Rx Instructions: must administer with evening meal metoprolol tartrate 50 mg Tablet 50 mg PO BID Qty: 60 0RF doxycycline hyclate 100 mg capsule 100 mg PO BID 6 Days Qty: 12 0RF hydroxyzine HCl 25 mg tablet 25 mg PO BID PRN (Reason: anxiety) Qty: 30 0RF Continued nortriptyline 10 mg capsule 10 mg PO PM lisinopril 10 mg Tablet 10 mg PO DAILY Discharge Orders: Discharge Order (Routine); Ordered 05/30/22 Ordered By: Martha Vazquez Admission Data Admit Date/Time: 05/29/22 11:26 Attending Provider: Martha Vazquze Admit Provider: Isaiah Gee Primary Care Provider: Ricardo Sarah Other Providers: Isaiah Gee ; Sergio Madsen
[2022-05-30] MEDS ORDERED: METOPROLOL TARTRATE 50 MG TAB PO SCH (21:00)
[2022-05-31] MEDS ORDERED: methylPREDNISolone 4 MG TAB PO SCH (07:00)
--- NOTE | 2022-05-31 18:37 | Electrocardiogram Report ---
Test Reason : Blood Pressure : / mmHG Vent. Rate : 082 BPM Atrial Rate : 074 BPM P-R Int : 000 ms QRS Dur : 098 ms QT Int : 380 ms P-R-T Axes : 000 035 033 degrees QTc Int : 443 ms Atrial fibrillation Voltage criteria for left ventricular hypertrophy Abnormal ECG When compared with ECG of 29-MAY-2022 09:42, Vent. rate has decreased BY [address] elevation has replaced ST depression in Lateral leads Confirmed by Sandeep Serrato ([id number]) on 05/31/2022 6:36:57 PM Referred By: Ricardo Sarah Confirmed By:Sandeep Serrato
[2022-06-01] MEDS ORDERED: methylPREDNISolone 4 MG TAB PO SCH (07:00)
== END 2022-05-30 19:01 | disposition home or self-care (01) ==
LOC: ED 09:20 → SUATTDRO 11:26 → INTOOBSV 11:26 → EDINP 11:26 → 2S 12:53